=== PATIENT | male | born 1960 ===

== ENCOUNTER 2025-08-10 18:45 | Observation (INO) | payer MEDICARE ==
[~2025-08-10] VITALS: Ht 172.7 cm; Wt 119.1 kg
[2025-08-10 19:15] LABS: BASOPHILS ABSOLUTE AUTO 0.03 K/mm3 (0.00-0.23); BASOPHILS PERCENT AUTO 1 % (0-2); EOSINOPHILS ABSOLUTE AUTO 0.20 K/mm3 (0.00-0.68); EOSINOPHILS PERCENT AUTO 5 % (0-6); Hematocrit 25.0 % (37.0-53.0); Hemoglobin 9.0 g/dL (13.5-17.5); IMMATURE GRAN ABSOLUTE AUTO 0.01 K/mm3 (0.00-0.10); IMMATURE GRAN PERCENT AUTO 0 % (0-1); LYMPHOCYTES ABSOLUTE AUTO 0.41 K/mm3 (0.84-5.20); LYMPHOCYTES PERCENT AUTO 11 % (21-46); MONOCYTES ABSOLUTE AUTO 0.21 K/mm3 (0.16-1.47); MONOCYTES PERCENT AUTO 5 % (4-13); Mean Corpuscular HGB Conc 36.0 g/dL (31.5-36.5); Mean Corpuscular Volume 91 fL (80-100); NEUTROPHILS ABSOLUTE AUTO 3.00 K/mm3 (1.96-9.15); NEUTROPHILS PERCENT AUTO 78 % (41-73); NRBC ABSOLUTE 0.00 K/mm3 (0.00-0.02); NRBC Auto 0.0 /100 WBC (0.0-0.2); Platelet Count 139 K/mm3 (150-400); RDW Coefficient Variation 13.5 % (11.7-14.2); RDW Standard Deviation 44.2 fL (35.1-46.3)
[2025-08-10 20:00] LABS: Alanine Aminotransfer (ALT/SGP 31.0 U/L (12-78); Albumin, Blood 3.9 g/dL (3.4-5.0); Albumin/Globulin Ratio 1.2 (0.8-1.8); Anion Gap 11.0 mmol/L (3-11); Aspartate Aminotrans (AST/SGOT 21.0 U/L (12-37); Bilirubin, Total 0.7 mg/dL (0.1-1.0); Blood Urea Nitrogen 43.0 mg/dL (8-24); CO2, Blood 28.0 mmol/L (21-32); Calcium, Blood 8.4 mg/dL (8.5-10.1); Chloride, Blood 98.0 mmol/L (98-108); Creatinine, Blood 7.38 mg/dL (0.60-1.20); Globulin, Blood 3.3 g/dL (2.2-4.0); Glucose, Blood 131.0 mg/dL (70-99); Potassium, Blood 3.5 mmol/L (3.5-5.5); Sodium, Blood 133.0 mmol/L (136-145); Total Protein, Blood 7.2 g/dL (6.4-8.2)
[2025-08-10 20:25] LABS: Prothrombin Time Results 17.8 Sec (9.7-11.5)
[2025-08-10] MEDS ORDERED: Pantoprazole Sodium 40 MG Injection IV ONE (23:05)
[2025-08-11] VITALS (12 sets, daily range): BP systolic 124–191; BP diastolic 69–94
[2025-08-11] MEDS ORDERED: HydrALAZINE HCl 20 MG / ML 1ML Vial IV ONE (01:00)
[2025-08-11] MEDS ORDERED: HydrALAZINE HCl 20 MG / ML 1ML Vial IV PRN (01:05)
[2025-08-11 01:32] LABS: Hematocrit 24.5 % (37.0-53.0); Hemoglobin 8.3 g/dL (13.5-17.5)
[2025-08-11] MEDS ORDERED: Ondansetron HCl 2 MG / ML 2ML Vial IV PRN (02:25)
[2025-08-11] MEDS ORDERED: Darbepoetin (Pharmacy Consult) SC SCH (05:20)
[2025-08-11 06:07] LABS: BASOPHILS ABSOLUTE AUTO 0.02 K/mm3 (0.00-0.23); BASOPHILS PERCENT AUTO 1 % (0-2); EOSINOPHILS ABSOLUTE AUTO 0.15 K/mm3 (0.00-0.68); EOSINOPHILS PERCENT AUTO 4 % (0-6); Hematocrit 23.8 % (37.0-53.0); Hemoglobin 8.3 g/dL (13.5-17.5); IMMATURE GRAN ABSOLUTE AUTO 0.02 K/mm3 (0.00-0.10); IMMATURE GRAN PERCENT AUTO 1 % (0-1); LYMPHOCYTES ABSOLUTE AUTO 0.31 K/mm3 (0.84-5.20); LYMPHOCYTES PERCENT AUTO 9 % (21-46); MONOCYTES ABSOLUTE AUTO 0.33 K/mm3 (0.16-1.47); MONOCYTES PERCENT AUTO 9 % (4-13); Mean Corpuscular HGB Conc 34.9 g/dL (31.5-36.5); Mean Corpuscular Volume 93 fL (80-100); NEUTROPHILS ABSOLUTE AUTO 2.82 K/mm3 (1.96-9.15); NEUTROPHILS PERCENT AUTO 77 % (41-73); NRBC ABSOLUTE 0.00 K/mm3 (0.00-0.02); NRBC Auto 0.0 /100 WBC (0.0-0.2); Platelet Count 115 K/mm3 (150-400); RDW Coefficient Variation 13.3 % (11.7-14.2); RDW Standard Deviation 45.6 fL (35.1-46.3)
[2025-08-11] MEDS ORDERED: ALBU90OI INH (06:14)
[2025-08-11] MEDS ORDERED: CARV25 PO (06:16)
[2025-08-11] MEDS ORDERED: DOCU100 PO (06:17)
[2025-08-11] MEDS ORDERED: VITAMIN D310 MC4 PO (06:19)
[2025-08-11] MEDS ORDERED: KLONOPIN0.5 M9 PO (06:22)
[2025-08-11] MEDS ORDERED: Flonase 0.05% N16 GM (06:22)
[2025-08-11] MEDS ORDERED: DOXA2 PO (06:22)
[2025-08-11] MEDS ORDERED: LOSA50 PO (06:23)
[2025-08-11] MEDS ORDERED: PROTONIX40 M1 PO (06:24)
[2025-08-11] MEDS ORDERED: PREG25 PO (06:25)
[2025-08-11] MEDS ORDERED: CINACALCET HCL60 M1 PO (06:26)
[2025-08-11] MEDS ORDERED: SEVEC800 PO (06:27)
[2025-08-11] MEDS ORDERED: NEUPRO1 EAC5 TOP (06:27)
[2025-08-11] MEDS ORDERED: WARF10 PO ×2 (06:28→06:29)
[2025-08-11] MEDS ORDERED: Robaxin750 MG PO (06:30)
[2025-08-11] MEDS ORDERED: HYDROCODONE-AC1 EA10 PO (06:30)
[2025-08-11] MEDS ORDERED: Albuterol HFA200 ACT/6.7 GM INH INH PRN (06:35)
[2025-08-11 06:39] LABS: Alanine Aminotransfer (ALT/SGP 30.0 U/L (12-78); Albumin, Blood 3.5 g/dL (3.4-5.0); Albumin/Globulin Ratio 1.2 (0.8-1.8); Anion Gap 9.0 mmol/L (3-11); Aspartate Aminotrans (AST/SGOT 15.0 U/L (12-37); Bilirubin, Total 1.2 mg/dL (0.1-1.0); Blood Urea Nitrogen 55.0 mg/dL (8-24); CO2, Blood 30.0 mmol/L (21-32); Calcium, Blood 8.2 mg/dL (8.5-10.1); Chloride, Blood 97.0 mmol/L (98-108); Creatinine, Blood 9.52 mg/dL (0.60-1.20); Globulin, Blood 3.0 g/dL (2.2-4.0); Glucose, Blood 89.0 mg/dL (70-99); Potassium, Blood 4.9 mmol/L (3.5-5.5); Sodium, Blood 131.0 mmol/L (136-145); Total Protein, Blood 6.5 g/dL (6.4-8.2)
--- NOTE | 2025-08-11 07:06 | NUR ---
ADMIT NOTED PT TO ROOM AT 0605. ORIENTED TO ROOM AND CALL LIGHT. EDUCATED ON FALL RISK AND TO CALL PRIOR TO GETTING UP. PT IND TO BATHROOM, DARKBROWN/BLACK STOOL WITH PINK TINGE NOTED TO WATER. BP ELEVATED, SBP 150'S. OTHER VSS. REPORT GIVEN TO ONCOMING RN.
[2025-08-11] MEDS ORDERED: Calcium Acetate 667 MG Gel Cap PO SCH (08:30)
[2025-08-11] MEDS ORDERED: Vitamin B Cmplx/Vit C/Folic Ac 1 Tab PO SCH (09:00)
[2025-08-11 12:05] LABS: Hematocrit 29.6 % (37.0-53.0); Hemoglobin 10.2 g/dL (13.5-17.5)
--- NOTE | 2025-08-11 12:26 | NUR ---
"Spiritual Care | Pt. Request Pt. is awake in bed reading scripture on his phone when he welcomed my visit. Pt. is pleasant. This casino controller pulled up a chair as Pt. shared a lengthy life review that spanned matters of family, neelam, and belief. Listened with empathy and and encouraging presence. Pastoral direct selling counselor is given. Pt. displayed evidence of agreement and a positive outlook. Prayed with the Pt. Pt. verbalized gratitude for the spiritual care visit and shook this chpalain's hand...twice."
[2025-08-11 12:28] LABS: Prothrombin Time Results 16.0 Sec (9.7-11.5)
--- NOTE | 2025-08-11 15:38 | NUR ---
UPDATE: PT LEFT UNIT VIA GURNEY FOR SCHEDULED COLONOSCOPY AT APPROX. 1530.
[2025-08-11] MEDS ORDERED: NS 1,000 ML IV ONE (15:41)
--- NOTE | 2025-08-11 15:47 | NUR ---
08/11/25 1547 Gogo Mejia MONITOR INTACT WITH CONTINUOUS PULSE OXIMETRY, CONTINUOUS END TITAL CO2, 3-LEAD EKG AND INTERMITTENT BLOOD PRESSURE.
[2025-08-11] MEDS ORDERED: NS 1,000 ML IV SCH (15:50)
--- NOTE | 2025-08-11 16:44 | NUR ---
SHIFT SUMMARY: PT A/O X4, ABLE TO MAKE NEEDS KNOWN. PT [place] AND DOESNT HAVE DIE FORGER FOR HEARING AIDS. PT STRENGTH EQUAL BILATERALLY. PT ON ROOM AIR, SATS >95%. DENIES SOB. PT NSR 70-80s, DENIES CHEST PAIN/PRESSURE. PT LAST BP WAS 178/91, NO BP ON RIGHT ARM DUE TO HX OF FISTULAS/GRAFTS. OTHER VSS. PT HAS A PERMA CATH TO UPPER RIGHT CHEST WALL. PT HAD A FEW DARK STOOLS TODAY, ABLE TO AMBULATE TO BATHROOM INDEP. PT GIVEN BOWEL PREP TODAY FOR SCHEDULED COLONOSCOPY THIS AFTERNOON. PT WENT BACK TO SCHEDULED COLONOSCOPY AT APPROX 1530, AWAITING PT ARRIVAL.
[2025-08-11] MEDS ORDERED: Ipratropium/Albuterol SulF 2.5-0.5MG/3 ML Amp ONE (16:53)
[2025-08-11] MEDS ORDERED: Ipratropium/Albuterol SulF 2.5-0.5MG/3 ML Amp INH ONE (16:55)
--- NOTE | 2025-08-11 17:42 | NUR ---
AT 1645, PATIENT TRANSFERED FROM ENDOSCOPY ROOM 1 [facility]IA [facility], TO DAY SURGERY STEP RECOVERY. PATIENT MONITORS APPLIED, INCLUDING 3 LEAD EKG, CONTINUOUS BIOX AND INTERMITTENT BP. BREATHING RA. PATIENT BEGAN TO COUGH UP SPUTUM AND APPEARED SOB, APPLIED 3L N/C WITH NO IMPROVEMENT, BIOX 85%, TACHYCARDIA 120'S BPM. SWITCHED TO 10L O2/NON-REBREATHER. AT 1655 DR RIBEIRO CALLED BACK TO BEDSIDE, DR WAHL AT BEDSIDE. BIOX IMPROVING, 87-94%. PATIENT CONTINUES TO COUGH UP COPIOUS AMOUNTS OF PINK SPUTUTM INTO EMESIS BAG, RESP RAPID AND LABOURED. LUNGS COURSE T/O. DUONEB GIVEN. AT 1707 ASSISTANCE FROM RT CALLED, MITCHELL, ARRIVED AT 1712. AT THIS TIME PATIENT IMPROVING AND ABLE TO TALK. STATES HE FEELS LESS SOB. BIOX 96%, NO LONGER TACHYCARDIC. DR RIBEIRO AND DR WAHL AGREE PATIENT MAY BE SAFELY TRANSFERED TO PCU WITH RT ON STANDBY. REPORT CALLED TO PCU 17 NURSE. DISCUSSED PCU STATUS APPROPRIATE FOR CONTINUED CARE, NURSE AGREES WITH PLAN. 1715-PATIENT TRANSFERED TO PCU 17 [facility]IA [facility] WITH 10L O2/NONREBREATHER AND RT ON STANDBY.
--- NOTE | 2025-08-11 17:51 | NUR ---
UPDATE: PT BACK FROM COLONOSCOPY PROCEDURE AT APPROX 1720, PT ARRIVED ON 15L NRB. RR 24-26, LUNG SOUNDS COURSE THROUGHOUT. PT SOB, COUGHING UP THICH YELLOW SPUTUM. PT ABLE TO BE TITRATED DOWN, NOW ON 6L HIGH FLOW. LUNG SOUNDS REMAIN COURSE. CPAP AT BEDSIDE FOR SUPPORT, PT DECLINING TO WEAR AT THIS TIME. BP AND HR STABLE. MEDICATED X1 FOR NAUSEA. RECIEVED BEDSIDE REPORT FROM DAY SURGERY RN. COLONOSCOPY SHOWED ACTIVE BLEED TO COLON. RECIEVED X1 CLIP. PROTONIX D/Cd. CALLED AND UPDATED ON PT.
[2025-08-11 23:28] LABS: Hematocrit 26.9 % (37.0-53.0); Hemoglobin 9.2 g/dL (13.5-17.5)
[2025-08-12] VITALS (14 sets, daily range): BP systolic 107–154; BP diastolic 62–136
[2025-08-12 03:36] LABS: BASOPHILS ABSOLUTE AUTO 0.03 K/mm3 (0.00-0.23); BASOPHILS PERCENT AUTO 0 % (0-2); EOSINOPHILS ABSOLUTE AUTO 0.04 K/mm3 (0.00-0.68); EOSINOPHILS PERCENT AUTO 0 % (0-6); Hematocrit 25.6 % (37.0-53.0); Hemoglobin 8.8 g/dL (13.5-17.5); IMMATURE GRAN ABSOLUTE AUTO 0.03 K/mm3 (0.00-0.10); IMMATURE GRAN PERCENT AUTO 0 % (0-1); LYMPHOCYTES ABSOLUTE AUTO 0.26 K/mm3 (0.84-5.20); LYMPHOCYTES PERCENT AUTO 3 % (21-46); MONOCYTES ABSOLUTE AUTO 0.44 K/mm3 (0.16-1.47); MONOCYTES PERCENT AUTO 5 % (4-13); Mean Corpuscular HGB Conc 34.4 g/dL (31.5-36.5); Mean Corpuscular Volume 93 fL (80-100); NEUTROPHILS ABSOLUTE AUTO 8.51 K/mm3 (1.96-9.15); NEUTROPHILS PERCENT AUTO 92 % (41-73); NRBC ABSOLUTE 0.00 K/mm3 (0.00-0.02); NRBC Auto 0.0 /100 WBC (0.0-0.2); Platelet Count 112 K/mm3 (150-400); RDW Coefficient Variation 13.8 % (11.7-14.2); RDW Standard Deviation 46.5 fL (35.1-46.3)
[2025-08-12 04:09] LABS: Magnesium, Blood 2.1 mg/dL (1.6-2.4)
[2025-08-12 04:24] LABS: Albumin, Blood 3.7 g/dL (3.4-5.0); Anion Gap 15 mmol/L (3-11); Blood Urea Nitrogen 75 mg/dL (8-24); CO2, Blood 27 mmol/L (21-32); Calcium, Blood 7.8 mg/dL (8.5-10.1); Chloride, Blood 96 mmol/L (98-108); Creatinine, Blood 12.10 mg/dL (0.60-1.20); Glucose, Blood 135 mg/dL (70-99); Phosphorus, Blood 7.1 mg/dL (2.5-4.9); Potassium, Blood 5.6 mmol/L (3.5-5.5); Sodium, Blood 132 mmol/L (136-145)
--- NOTE | 2025-08-12 05:48 | NUR ---
SHIFT SUMMARY PT A&O X4, CALM, COOPERATIVE TO CARE. HR IN THE 80'S-90'S, SR. HE DENIES ANY CP/PRESSURE, SBP STABLE. PT HAD AN EPISODE FOLLOWING COLONOSCOPY WHERE HE WAS REQUIRING 15L ON THE NRB, TRIPODING, AND COUGHING WITH LOT OF SPUTUM. SHORTLY INTO SHIFT PT WAS ABLE TO TIRATE DOWN ON HIS O2 AND SPUTUM PRODUTION DECREASED. SpO2 >92% ON 1L VIA NC. PT HAS CPAP AT BEDSIDE FOR SLEEP WITH 4L BLEED IN. HE HAS SOME SOB ON EXERTION BUT RECOVERS QUICKLY. PT S/P COLONSCOPY ON 08/11, PT REPORT HAVING BM THIS AM. +BS IN ALL QUADRENTS. HE DENIES ANY N/V. HE HAS A RIGHT SIDED PERMACATH, DIALYSIS PT. NEPHRO FOLLOWING CASE, PLAN FOR DIALYSIS THIS AM. PT RESTING IN BED AT THIS TIME. CALL LIGHT IN REACH. WILL MONITOR PT AND REPORT TO ONCOMING RN.
[2025-08-12 10:19] LABS: Hematocrit 24.7 % (37.0-53.0); Hemoglobin 8.6 g/dL (13.5-17.5)
--- NOTE | 2025-08-12 14:02 | NUR ---
DISCHARGE SUMMARY PT A&OX4, VSS. DIALYSIS THIS AM. IV'S REMOVED. TELEMETRY REMOVED. DISCHARGE PAPERWORK DISCUSSED WITH PT. NO MEDICATION CHANGES. PT DRESSED IN PERSONAL CLOTHES. WHEELED TO 'S PRIVATE VEHICLE WITH ALL PERSONAL BELONGINGS.
== END 2025-08-12 13:37 | disposition home or self-care (01) ==
LOC: ER 18:45 → PCU 18:46 → ERHOLD 18:46 → PCU 08-11 05:51 → ENPENDDIS 08-12 12:57 → PCU 08-12 13:37
PROVIDERS: Hospitalist; Internal Medicine Gastroenterology; Internal Medicine Nephrology; Student in an Organized Health Care Education/Training Program; ADMIT Internal Medicine
PROC: 0W3P8ZZ Control Bleeding in Gastrointestinal Tract, Via Natural or Artificial Opening Endoscopic (ICD-10-PCS; principal; 2025-08-11 14:00)
PROC: 0DB68ZX Excision of Stomach, Via Natural or Artificial Opening Endoscopic, Diagnostic (ICD-10-PCS; principal; 2025-08-11 14:00)
DX: K63.81 Dieulafoy lesion of intestine (principal); K31.7 Polyp of stomach and duodenum; K63.89 Other specified diseases of intestine; K31.89 Other diseases of stomach and duodenum; J69.0 Pneumonitis due to inhalation of food and vomit; D61.818 Other pancytopenia; E87.1 Hypo-osmolality and hyponatremia; I16.0 Hypertensive urgency; I12.0 Hypertensive chronic kidney disease with stage 5 chronic kidney disease or end stage renal disease; N18.6 End stage renal disease; G47.33 Obstructive sleep apnea (adult) (pediatric); M06.9 Rheumatoid arthritis, unspecified; I73.9 Peripheral vascular disease, unspecified; Z99.2 Dependence on renal dialysis; Z79.01 Long term (current) use of anticoagulants; Z79.899 Other long term (current) drug therapy; Z87.891 Personal history of nicotine dependence; Z88.8 Allergy status to other drugs, medicaments and biological substances; Z86.711 Personal history of pulmonary embolism
CPT/HCPCS: 36415; 71045; 71046; 74174; 80053; 80069; 83605; 83735; 84484; 85014; 85018; 85025; 85610; 86850; 86900; 86901; 88305; 88341; 88342; 93005; 93010; 94660; 96374-59; 96375; 96376; 99285-25; A9270; G0257; G0378; J0360; J2405; J2470; J2704; J7030; Q9967